=== PATIENT | female | born 1955 | race Caucasian/White ===

== ENCOUNTER 2019-09-30 15:56 | Emergency (ER) | payer BC ==
[~2019-09-30] VITALS: Ht 170.2 cm; Wt 123.4 kg
--- NOTE | 2019-09-30 16:36 | RAD ---
AP chest x-ray HISTORY: Palpitations. FINDINGS: Heart size normal. Mediastinal silhouette is normal. No pneumothorax, pulmonary opacities or pleural effusions. The bones are unremarkable. IMPRESSION: No acute process. Electronically signed by: Tenzin Gates MD (09/30/2019 4:34 PM) [facility] [id number]
[2019-09-30 16:46] LABS: BASO % 1 % (0-3); EOS # 0.1 x10^3/uL (0.0-0.7); EOS % 3 % (0-3); HEMATOCRIT 39.9 % (36.0-47.0); HEMOGLOBIN 13.5 g/dL (12.0-15.5); LYMPH # 1.8 x10^3/uL (1.0-4.8); LYMPH % 35 % (24-48); MEAN CORPUSCULAR HEMOGLOBIN 28 pg (25-35); MEAN CORPUSCULAR HGB CONC 34 g/dL (31-37); MEAN CORPUSCULAR VOLUME 83 fL (79-100); MONO # 0.4 x10^3/uL (0.0-1.1); MONO % 8 % (0-9); NEUT # 2.7 x10^3/uL (1.8-7.7); NEUT % 53 % (31-73); PLATELET COUNT 243 x10^3/uL (140-400); RED BLOOD COUNT 4.79 x10^6/uL (3.50-5.40); RED CELL DISTRIBUTION WIDTH 14.9 % (11.5-14.5)
[2019-09-30 16:52] LABS: CALCIUM 9.2 mg/dL (8.5-10.1); CREATININE 1.1 mg/dL (0.6-1.0); GFR 50.3; POTASSIUM 3.6 mmol/L (3.5-5.1)
[2019-09-30 16:57] LABS: ALBUMIN 3.5 g/dL (3.4-5.0); ALBUMIN/GLOBULIN RATIO 0.9 (1.0-1.7); MAGNESIUM 1.9 mg/dL (1.8-2.4); TOTAL BILIRUBIN 0.5 mg/dL (0.2-1.0); TOTAL PROTEIN 7.4 g/dL (6.4-8.2)
--- NOTE | 2019-09-30 17:00 | PHYS DOC ---
Past Medical History Past Medical History: A-Fib Past Surgical History: Hip Replacement, Knee Replacement Additional Past Surgical Histo: BILATERAL KNEE REPLACEMENT, RIGHT HIP REPLACEMENT Alcohol Use: None Drug Use: None Adult General Chief Complaint Chief Complaint: RAPID HEART RATE HPI HPI Patient is a 63-year-old female who presents with complaint of palpitations that started last night. Patient states that she just has a sensation that her heart beat is fast and irregular. Patient indicates that she has a history of atrial fibrillation and had been on a blood thinner in the past. She denies any chest pain but does indicate that she's got some shortness of breath on exertion.[] Review of Systems Review of Systems Constitutional: Denies fever or chills [] Respiratory: Complains of exertional shortness of breath [] Cardiovascular: No additional information not addressed in HPI [] GI: Denies abdominal pain, nausea, vomiting or diarrhea [] Integument: Denies rash or skin lesions [] Neurologic: Denies headache, focal weakness or sensory changes [] All other systems were reviewed and found to be within normal limits, except as documented in this note. Allergies Allergies Allergies Coded Allergies Type Severity Reaction Last Updated Verified No Known Drug Allergies 09/30/19 No Physical Exam Physical Exam Constitutional: Well developed, well nourished, no acute distress, non-toxic appearance. [] HENT: Normocephalic, atraumatic, bilateral external ears normal, oropharynx m oist, no oral exudates, nose normal. [] Eyes: PERRLA, EOMI, conjunctiva normal, no discharge. [] Neck: Normal range of motion, no tenderness, supple. [] Cardiovascular: Regular rate with irregular rhythm[] Lungs & Thorax: Bilateral breath sounds clear to auscultation [] Abdomen: Bowel sounds normal, soft, no tenderness. [] Skin: Warm, dry, no erythema, no rash. [] Extremities: No tenderness, no cyanosis, no clubbing, ROM intact, there is bilateral lower extremity nonpitting edema. [] Neurologic: Alert and oriented X 3, no focal deficits noted. [] Current Patient Data Vital Signs Vital Signs Date Time Temp Pulse Resp B/P (MAP) Pulse Ox O2 Delivery O2 Flow Rate FiO2 09/30/19 16:00 98.2 100 14 116/68 (84) 97 Room Air 98.2 Lab Values Laboratory Tests Test 09/30/19 16:25 White Blood Count 5.0 x10^3/uL (4.0-11.0) Red Blood Count 4.79 x10^6/uL (3.50-5.40) Hemoglobin 13.5 g/dL (12.0-15.5) Hematocrit 39.9 % (36.0-47.0) Mean Corpuscular Volume 83 fL (79-100) Mean Corpuscular Hemoglobin 28 pg (25-35) Mean Corpuscular Hemoglobin Concent 34 g/dL (31-37) Red Cell Distribution Width 14.9 % (11.5-14.5) H Platelet Count 243 x10^3/uL (140-400) Neutrophils (%) (Auto) 53 % (31-73) Lymphocytes (%) (Auto) 35 % (24-48) Monocytes (%) (Auto) 8 % (0-9) Eosinophils (%) (Auto) 3 % (0-3) Basophils (%) (Auto) 1 % (0-3) Neutrophils # (Auto) 2.7 x10^3/uL (1.8-7.7) Lymphocytes # (Auto) 1.8 x10^3/uL (1.0-4.8) Monocytes # (Auto) 0.4 x10^3/uL (0.0-1.1) Eosinophils # (Auto) 0.1 x10^3/uL (0.0-0.7) Basophils # (Auto) 0.0 x10^3/uL (0.0-0.2) Sodium Level 141 mmol/L (136-145) Potassium Level 3.6 mmol/L (3.5-5.1) Chloride Level 104 mmol/L (98-107) Carbon Dioxide Level 25 mmol/L (21-32) Anion Gap 12 (6-14) Blood Urea Nitrogen 21 mg/dL (7-20) H Creatinine 1.1 mg/dL (0.6-1.0) H Estimated GFR (Cockcroft-Gault) 50.3 BUN/Creatinine Ratio 19 (6-20) Glucose Level 127 mg/dL (70-99) H Calcium Level 9.2 mg/dL (8.5-10.1) Magnesium Level 1.9 mg/dL (1.8-2.4) Total Bilirubin 0.5 mg/dL (0.2-1.0) Aspartate Amino Transferase (AST) 20 U/L (15-37) Alanine Aminotransferase (ALT) 32 U/L (14-59) Alkaline Phosphatase 133 U/L (46-116) H Troponin I Quantitative < 0.017 ng/mL (0.000-0.055) BQ-Kcd-A-Type Natriuretic Peptide 871 pg/mL (0-124) H Total Protein 7.4 g/dL (6.4-8.2) Albumin 3.5 g/dL (3.4-5.0) Albumin/Globulin Ratio 0.9 (1.0-1.7) L Thyroid Stimulating Hormone (TSH) 2.860 uIU/mL (0.358-3.74) Laboratory Tests 09/30/19 16:25 Laboratory Tests 09/30/19 16:25 EKG EKG [] Interpretation Time: EKG demonstrates atrial fibrillation with rate of 93. Radiology/Procedures Radiology/Procedures [] Impressions: PROCEDURE: PORTABLE CHEST 1V AP chest x-ray HISTORY: Palpitations. FINDINGS: Heart size normal. Mediastinal silhouette is normal. No pneumothorax, pulmonary opacities or pleural effusions. The bones are unremarkable. IMPRESSION: No acute process. Electronically signed by: Tenzin Gates MD (09/30/2019 4:34 PM) [facility] Course & Med Decision Making Course & Med Decision Making Pertinent Labs and Imaging studies reviewed. (See chart for details) [] Dragon Disclaimer Dragon Disclaimer This electronic medical record was generated, in whole or in part, using a voice recognition dictation system. Departure Departure Impression: Primary Impression: Paroxysmal atrial fibrillation Disposition: 01 HOME, SELF-CARE Condition: STABLE Referrals: UNKNOWN PCP NAME (PCP) Patient Instructions: Atrial Fibrillation Scripts Rivaroxaban (XARELTO) 20 Mg Tablet 1 TAB PO DAILY for 15 Days, #15 TAB 0 Refills with food Prov: LEE FREDERICK Jr. DO 09/30/19 LEE FREDERICK Jr. DO Sep 30, 2019 17:00
[2019-09-30] MEDS ORDERED: RIVA20TA2 PO (17:35)
[2019-09-30 17:43] VITALS: BP 113/56
[2019-09-30] MEDS ORDERED: ANTI-COAG MONITOR BY PHARMACY. MC PRN (17:45)
[2019-09-30] MEDS ORDERED: RIVAROXABAN 10 MG TABLET. PO SCH (17:51)
[2019-09-30] MEDS ORDERED: TRIA15CR TP (18:06)
--- NOTE | 2019-10-01 10:14 | EKG ---
[facility] [address] [place] [address] Test Date: 2019-09-30 Test Time: 16:09:28 Pat Name: GUERLINE RODRIGUEZ Department: Room: Gender: F Cam Specialist: : [id number] Requested By: LEE FREDERICK Order Number: [id number] Reading MD: Measurements Intervals Barre Rate: 93 P: WI: QRS: -43 QRSD: 102 T: 37 QT: 368 QTc: 460 Interpretive Statements IRREGULAR RHYTHM, NO P-WAVE FOUND ABNORMAL LEFT AXIS DEVIATION R-S TRANSITION ZONE IN V LEADS DISPLACED TO THE LEFT LEFT ANTERIOR FASCICULAR BLOCK ABNORMAL ECG RI6.01 No previous ECG available for comparison
== END 2019-09-30 18:09 | disposition home or self-care (01) ==
LOC: ER 15:56
DX: I48.0 Paroxysmal atrial fibrillation (principal); Z96.653 Presence of artificial knee joint, bilateral; Z96.641 Presence of right artificial hip joint
CPT/HCPCS: 36415; 71045; 80053; 83735; 83880; 84443; 84484; 85025; 85379; 93005; 99285